=== PATIENT | female | born 1965 | race Caucasian/White ===

== ENCOUNTER 2019-05-12 06:13 | Inpatient (IN) | payer BC ==
[2019-05-09 09:08] VITALS: BMI 27.6
[~2019-05-12 06:13] MED LIST: ceFAZolin SODIUM 1 GM VIAL IVPB ONE
[2019-05-12] MEDS ORDERED: DESFLURANE GAS 240 ML BOTTLE IH ONE (07:23)
[2019-05-12] MEDS ORDERED: LIDOCAINE HCL 2% JELLY 10 ML CARTRIDGE ONE (07:23)
[2019-05-12] MEDS ORDERED: ROPIVACAINE HCL 0.5% 30ML VIAL ONE (07:28)
[2019-05-12] MEDS ORDERED: DEXAMETHASONE SOD PHOSPHATE/PF 10 MG/ML SDV ONE (07:28)
[2019-05-12] MEDS ORDERED: MIDAZOLAM HCL 2 MG/2 ML SINGLE DOSE VIAL ONE ×3 (07:30→07:36)
[2019-05-12] MEDS ORDERED: fentaNYL CITRATE 250 MCG/5 ML VIAL ONE (07:36)
[2019-05-12] MEDS ORDERED: PROPOFOL 20 ML ONE ×2 (07:36)
[2019-05-12] MEDS ORDERED: ROCURONIUM BROMIDE 50 MG/5 ML SYRINGE ONE ×3 (07:36→10:02)
[2019-05-12] MEDS ORDERED: SUCCINYLCHOLINE CHLORIDE 200 MG/10 ML SYRINGE ONE (07:36)
[2019-05-12] MEDS ORDERED: ceFAZolin SODIUM 1 GM VIAL ONE (07:39)
[2019-05-12] MEDS ORDERED: SODIUM CHLORIDE 0.9% P/F 10 ML VIAL IJ ONE (07:39)
--- NOTE | 2019-05-12 08:29 | HP ---
History & Physical Update - History History: No Change - Physical Physical: No Change - Assessment Assessment: No Change - Plan Plan: No Change
[2019-05-12] MEDS ORDERED: ceFAZolin SODIUM 1 GM VIAL IVPB ONE (09:00)
[2019-05-12] MEDS ORDERED: NEOSTIGMINE METHYLSULFATE 0.5 MG/ML - 10 ML MDV ONE (09:50)
[2019-05-12] MEDS ORDERED: DEXAMETHASONE SOD PHOSPHATE 4 MG/1 ML VIAL ONE (09:50)
[2019-05-12] MEDS ORDERED: GLYCOPYRROLATE 0.2 MG/1 ML VIAL ONE (09:50)
[2019-05-12] MEDS ORDERED: HYDROmorphone HCl 2 MG/ML VIAL ONE (10:48)
[2019-05-12] MEDS ORDERED: BENZOIN TINCTURE SWABSTICK TP ONE (12:33)
--- NOTE | 2019-05-12 13:07 | OP ---
Operative Note - Note: Operative Date: 05/12/19 Pre-Operative Diagnosis: Pelvic pain, fibroid uterus Operation: Supracervical hysterectomy, bilateral salpingo-oophorectomy, via pfannensteil incision; conversion from laparoscopy; cystoscopy Findings: globular fibroid uterus, normal fallopian tubes and ovaries bilaterally; bilateral ureteral jets on cystoscopy Post-Operative Diagnosis: Same as Pre-op Surgeon: Rossy Miller Patcher Wood Welder: Wiliam Nielson Anesthesiologist/DETONATOR MAKER: Christiano Fuentes Anesthesia: General Specimens Removed: uterus, fallopian tubes, ovaries Estimated Blood Loss (mls): 1,000 Drains, Volume Out (mls): 100 (clear urine) Fluid Volume Replaced (mls): 2,000 Operative Report Dictated: Yes
[2019-05-12] MEDS ORDERED: ACETAMINOPHEN INJECTION 100 ML IVPB ONE (13:18)
[2019-05-12] MEDS: ACETAMINOPHEN 1000 MG/100 ML VIAL (NON FORMULARY) IVPB PRN ×2 (13:29→18:09)
[2019-05-12] MEDS ORDERED: HYDROmorphone *PCA* 10MG/50ML DISP.SYRIN ONE (13:44)
[2019-05-12] MEDS ORDERED: HYDROmorphone *PCA* 10MG/50ML DISP.SYRIN PCA SCH (14:00)
[2019-05-12] MEDS ORDERED: LACTATED RINGERS SOLUTION 1,000 ML IV SCH (14:00)
[2019-05-12] MEDS: ENOXAPARIN NA (PORCINE) 40 MG/0.4 ML DISP.SYRIN SQ SCH (14:05)
--- NOTE | 2019-05-12 14:57 | OP ---
DATE OF OPERATION: 05/12/2019 ATTENDING PHYSICIAN: Rossy Miller MD PREOPERATIVE DIAGNOSIS: Pelvic pain and fibroid uterus. POSTOPERATIVE DIAGNOSIS: Pelvic pain and fibroid uterus. SURGERY: Supracervical hysterectomy and bilateral salpingo-oophorectomy via Pfannenstiel incision converted from laparoscopy. SURGEON: Rossy Miller MD MEDICAL DETAILIST: Wiliam Nielson MD ANESTHESIA: Diallo Loja CRNA INDICATION: The patient is a 54 with a history of pelvic pain and fibroid uterus, desiring definitive surgical management. She was counseled regarding risks, benefits, alternatives, and complications of procedure, including infection, bleeding, damage to surrounding organs, conversion to a laparotomy. She expressed understanding. DESCRIPTION: She was brought to the operating room. When anesthesia was found to be adequate, the patient was prepped and draped in normal sterile fashion, placed in dorsal lithotomy position using Shawn stirrups. A weighted speculum was placed in the patient's vagina, anterior vagina was retracted using a Ibrahim retractor, and the Advincula director counseling bureau was placed in the uterine cavity. A Mcrae was placed to gravity. Attention was brought to the abdomen. A 5-mm incision was made in the umbilicus and intraperitoneal placement was confirmed using a Veress needle and a water drop test. The patient's abdomen was insufflated to an operating pressure of 16 mmHg, and a size 5-mm trocar was placed under direct visualization. Evaluation of the abdominal cavity revealed a mobile fibroid uterus, bulky uterus, normal appearing ovaries and tubes bilaterally. Then 5-mm trocars were placed on the right lower quadrant, left lower quadrant, and left upper quadrant under direct visualization. Attention was brought to the left uteroovarian ligament, which was ligated using a LigaSure. This was carried down to the level of the internal cervix; however, a large fibroid was noted in the left broad ligament. Attention was brought to the right adnexa, where the uteroovarian ligament was transected using a LigaSure and the rounds were transected using the LigaSure and the anterior leaf of the broad ligament was dissected down to the level of the internal os, and the uterine vessels were isolated and ligated using the LigaSure. At this point in time, it was noted to be very difficult to dissect both vessels bilaterally, so decision was made to convert to laparotomy. Pneumoperitoneum was released. Laparoscopic trocars were removed, and an 11-cm skin incision was made approximately 2 cm above the suprapubic bone, and this was carried down to underlying fascia using the Bovie electrocautery. The fascia was nicked in midline, extended laterally using Tee scissors. Inferior portion of the fascial incision was tented up using Chrystal clamps and dissected off underlying rectus muscle using Tee scissors. Attention was brought to the superior portion, where in a similar fashion it was tented up using Chrystal clamps and dissected off the underlying rectus muscle using Tee scissors. The diastasis was noted. Peritoneum was entered sharply and extended inferiorly and superiorly. The uterus was then exteriorized and the right uterine vessels were skeletonized and they were double Margarita clamped and suture ligated using 0 Vicryl. Good hemostasis was noted. Attention was brought to the right uterine vessels. They were skeletonized and they were identified and doubly Margarita clamped and suture ligated using 0 Vicryl. Good hemostasis was noted. The cervix was then amputated and sent to Pathology. The posterior serosa was included to the cervical stump and this was all closed in interrupted fashion using 0 Vicryls. Copious irrigation was performed. Good hemostasis was noted. Cystoscopy was then performed. Bilateral ureteral jets were noted. The left ovary was then suture ligated using 0 Vicryl and left fallopian tube was sent to Pathology. The right fallopian tube was suture ligated and right fallopian tube was sent to Pathology. Copious irrigation was performed. All pedicles were examined and found to be hemostatic. The rectus muscles were reapproximated using 2-0 chromic in an interrupted fashion. The fascia was closed using 0 Vicryl in running fashion. The subcutaneous fat was closed using 0 Vicryl, 2-0 chromic gut in interrupted fashion. The skin was reapproximated using 3-0 Vicryl. The patient tolerated the procedure well. Estimated blood loss was 1000 mL. Urine at the end of the case was 100 mL and fluids given were 2000 mL. The patient was woken up in the recovery room in stable condition. Perez [id number]
[2019-05-12] MEDS: CEFAZOLIN 2 GM/D5W 2 GM/50 ML ML IVPB SCH (19:18)
--- NOTE | 2019-05-12 19:37 | PN ---
Progress Note (SOAP) - Subjective History of Present Illness: Patient reports pain and discomfort s/p Ofirmev No nausea No vomiting + young No chest pain, shortness of breath - Current Medications Current Medications: Active Medications Acetaminophen (Ofirmev Injection -) 1,000 mg IVPB Q6H PRN PRN Reason: PAIN LEVEL 1-5 Last Admin: 05/12/19 18:09 Dose: 1,000 mg Enoxaparin Sodium (Lovenox -) 40 mg SQ DAILY [facility] Last Admin: 05/12/19 14:05 Dose: Not Given Fentanyl (Sublimaze Injection -) 50 mcg IVPUSH [id number] PRN PRN Reason: PAIN-PACU ORDER X 4 DOSES ONLY Hydromorphone HCl (Hydromorphone 10 Mg/50 Ml-Ns) 10 mg CUSTOMS ENTRY WRITER CUSTOMS ENTRY WRITER [facility]; Protocol Stop: 05/19/19 13:56 Last Admin: 05/12/19 13:55 Dose: 10 mg Cefazolin Sodium/Dextrose (Ancef 2 Gm Premixed Ivpb -) 2 gm in 50 mls @ 100 mls /hr IVPB Q8HIV [facility] Stop: 05/13/19 02:29 Last Admin: 05/12/19 19:18 Dose: 100 mls/hr Lactated Ringer's (Lactated Ringers Solution) 1,000 mls @ 125 mls/hr IV ASDIR [facility] Last Admin: 05/12/19 14:17 Dose: 125 mls/hr Ondansetron HCl (Zofran Injection) 4 mg IVPUSH Q6H PRN PRN Reason: NAUSEA AND/OR VOMITING - Objective Vital Signs: Vital Signs Temperature 98.6 F 05/12/19 18:33 Pulse Rate 73 05/12/19 18:33 Respiratory Rate 18 05/12/19 18:33 Blood Pressure 114/68 05/12/19 18:33 O2 Sat by Pulse Oximetry (%) 100 05/12/19 17:55 Constitutional: Yes: Well Nourished, No Distress, Calm Cardiovascular: Yes: Regular Rate and Rhythm Respiratory: Yes: Regular, CTA Bilaterally Gastrointestinal: Yes: Soft, Hypoactive Bowel Sounds (present LUQ, RUQ) Extremities: Yes: WNL Edema: No Neurological: Yes: Alert, Oriented Psychiatric: Yes: Alert, Oriented Assessment/Plan 54 yo POD # 0 s/p ANITRA, BSO, cystoscopy, conversion from laparoscopy 1. Reviewed surgical procedure with patient All questions answered from patient and family members 2. Pain - on dilaudid CUSTOMS ENTRY WRITER, Ofirmev Will add caldolor PRN 3. - Adequate UOP (~ 100 cc/hr), + jets on cysto Will f/u BUN/Cr in the AM 4. Will keep NPO until flatus, will advance when passing flatus if tolerated 5. WIll continue to monitor
[2019-05-12] MEDS: ONDANSETRON 4 MG/2 ML VIAL IVPUSH PRN (19:41)
[2019-05-12] MEDS: IBUPROFEN 800 MG/8 ML IJ IVPB PRN (21:16)
[2019-05-13] MEDS: CEFAZOLIN 2 GM/D5W 2 GM/50 ML ML IVPB SCH (01:48)
[2019-05-13] MEDS: ONDANSETRON 4 MG/2 ML VIAL IVPUSH PRN (02:28)
[2019-05-13] MEDS: IBUPROFEN 800 MG/8 ML IJ IVPB PRN (02:52)
[2019-05-13 07:32] LABS: HEMATOCRIT 33.3 % (32.4-45.2); HEMOGLOBIN 11.3 GM/dL (10.7-15.3); MCH 31.6 pg (25.7-33.7); MCHC 34.1 g/dl (32.0-36.0); MEAN CELL VOLUME 92.6 fl (80-96); MEAN PLT VOLUME 9.5 fl (7.5-11.1); PLATELET COUNT 213 K/MM3 (134-434); RBC 3.59 M/mm3 (3.60-5.2); RDW 13.1 % (11.6-15.6); WHITE BLOOD COUNT 11.4 K/mm3 (4.0-10.0)
[2019-05-13 08:11] LABS: BLOOD UREA NITROGEN 11.6 mg/dL (7-18); CALCIUM 7.9 mg/dL (8.5-10.1); CREATININE 0.5 mg/dL (0.55-1.3); POTASSIUM 3.7 mmol/L (3.5-5.1)
--- NOTE | 2019-05-13 08:19 | PN ---
HC Provider Note Provider Note: Anesthesia Post-Op Note Pt seen s/p GA with TAP Blocks and TANK HOUSE SUPERVISOR for GAEL Pt in bed awake alert reporting some discomfort but reluctant to use TANK HOUSE SUPERVISOR -- reports tylenol helps Pt remains NPO with n/v; young in situ Pt denies puritis, SOB VSS As pt remains npo - suggest continue TANK HOUSE SUPERVISOR (pt encouraged to use more often) follow-up on TANK HOUSE SUPERVISOR Arianna Griffiths.
--- NOTE | 2019-05-13 08:35 | PN ---
Progress Note (SOAP) - Subjective History of Present Illness: Patient reports pain well controlled with Ofirimev / Caldolor / Dilaudid FIELD SERVICE TECHNICIAN Mild nausea this AM after trying ice cubes No flatus yet + young clear fluid Mild headache No fevers, chills, chest pain, shortness of breath. - Current Medications Current Medications: Active Medications Acetaminophen (Ofirmev Injection -) 1,000 mg IVPB Q6H PRN PRN Reason: PAIN LEVEL 1-5 Last Admin: 05/12/19 18:09 Dose: 1,000 mg Enoxaparin Sodium (Lovenox -) 40 mg SQ DAILY [facility] Last Admin: 05/12/19 14:05 Dose: Not Given Fentanyl (Sublimaze Injection -) 50 mcg IVPUSH [id number] PRN PRN Reason: PAIN-PACU ORDER X 4 DOSES ONLY Hydromorphone HCl (Hydromorphone 10 Mg/50 Ml-Ns) 10 mg FIELD SERVICE TECHNICIAN FIELD SERVICE TECHNICIAN [facility]; Protocol Stop: 05/19/19 13:56 Last Admin: 05/12/19 13:55 Dose: 10 mg Lactated Ringer's (Lactated Ringers Solution) 1,000 mls @ 125 mls/hr IV ASDIR [facility] Last Admin: 05/12/19 14:17 Dose: 125 mls/hr Ibuprofen (Caldolor Injection -) 600 mg IVPB Q6H PRN PRN Reason: FEVER Last Admin: 05/13/19 02:52 Dose: 600 mg - Objective Vital Signs: Vital Signs Temperature 98.0 F 05/13/19 06:00 Pulse Rate 79 05/13/19 06:00 Respiratory Rate 18 05/13/19 06:00 Blood Pressure 112/64 05/13/19 06:00 O2 Sat by Pulse Oximetry (%) 100 05/12/19 17:55 Constitutional: Yes: Well Nourished, No Distress, Calm Cardiovascular: Yes: Regular Rate and Rhythm Respiratory: Yes: Regular, CTA Bilaterally Gastrointestinal: Yes: Normal Bowel Sounds, Soft Extremities: Yes: WNL Peripheral Pulses WNL: Yes Edema: No Wound/Incision: Yes: Dressing Dry and Intact Psychiatric: Yes: Alert, Oriented Labs Lab Results: CBC, BMP 05/13/19 06:46 05/13/19 06:46 Assessment/Plan 54 yo POD # 1 s/p ANITRA, BSO, cystoscopy, conversion from laparoscopy for pelvic pain, fibroid uterus 1. Continue routine postoperative care. Will order abdominal binder for discomfort, throat lozenges for discomfort. 2. ID - afebrile, will continue to monitor vital signs. 3. Cardiovascular - No acute issues 4. Pulmonary - Encourage incentive spirometer, no signs of atelectasis at this time 5. Hematology - Hemoglobin / Hematocrit - 11.3/33.3 ( preop 14.1 / 42.2) Patient asymptomatic at this time, doing well Will continue to monitor vital signs of anemia Plan to start lovenox for thromboprophylaxis today 6. Urinary urine output adequate overnight (~2300 cc overnight); Creatinine stable (0.7 --> 0.5) Will DC young later today and await to void 7. Gastroinestinal - no signs of ileus at this time Will advance diet at lunch 8. Gynecology will follow up pathology 9. Anticipate discharge home POD # 2, pending able to ambulate, adequate pain control and urinating without issue.
[2019-05-13] MEDS ORDERED: BENZOCAINE/MENTH/CETYLPYRD CL 1 EACH LOZENGE MM PRN (08:39)
[2019-05-13] MEDS: ENOXAPARIN NA (PORCINE) 40 MG/0.4 ML DISP.SYRIN SQ SCH (09:27)
[2019-05-13] MEDS: IBUPROFEN 600 MG TABLET (FP) PO PRN (11:17)
[2019-05-13] MEDS: ACETAMINOPHEN 325 MG TABLET (FP) PO PRN ×2 (11:18→18:02)
[2019-05-13] MEDS ORDERED: PCA PUMP KEY 1 EACH EACH ONE (12:33)
[2019-05-13] MEDS: oxyCODONE HCL 5 MG TABLET PO PRN ×2 (12:37→18:00)
[2019-05-14] MEDS: oxyCODONE HCL 5 MG TABLET PO PRN ×3 (02:32→13:42)
[2019-05-14] MEDS: IBUPROFEN 600 MG TABLET (FP) PO PRN ×3 (02:33→13:42)
[2019-05-14] MEDS: ENOXAPARIN NA (PORCINE) 40 MG/0.4 ML DISP.SYRIN SQ SCH (10:26)
--- NOTE | 2019-05-14 11:25 | PN ---
Progress Note (short form) - Note Progress Note: Pain Follow up POD#3 Dilaudid AMMUNITION STOREKEEPER was cancelled yesterday. Patient started orals,no N/V,pain is controlled. A/P Rest of the care is as per DERRICK WORKER WELL SERVICE physician. Mar Stinson MD.
[2019-05-14 12:43] VITALS: BP 101/55; PULSE 89; TEMP 98.2
--- NOTE | 2019-05-14 12:50 | PATH ---
Surgical Pathology Report Patient Name: AGUSTINA RICE [facility]. Rec. #: [id number] /Age/Gender: 1965 (Age: 54) / F Account: [id number] Location: [facility] OBS/RAG SHREDDER Taken: 05/12/2019 Received: 05/12/2019 Reported: 05/14/2019 Physicians: Rossy Miller Specimen(s) Received A: UTERUS B: LEFT OVARY AND FALLOPIAN TUBE C: RIGHT OVARY AND FALLOPIAN TUBE Clinical History Pelvic pain, fibroid uterus Final Diagnosis A. UTERUS, SUPRACERVICAL HYSTERECTOMY: 344 G UTERUS. LEIOMYOMA(TA), SUBSEROSAL AND INTRAMURAL. INACTIVE ENDOMETRIUM. PORTION OF CERVIX WITH FOCAL SQUAMOUS METAPLASIA. B. OVARY AND FALLOPIAN TUBE, LEFT, SALPINGO-OOPHORECTOMY: OVARY WITH HEMORRHAGIC CORPUS LUTEUM. FALLOPIAN TUBE WITH PARATUBAL CYST (INCLUDING FIMBRIATED END AND FULL LUMINAL PORTION). C. OVARY AND FALLOPIAN TUBE, RIGHT, SALPINGO-OOPHORECTOMY: OVARY WITH CYSTIC FOLLICLES. FALLOPIAN TUBE WITH PARATUBAL CYST (INCLUDING FIMBRIATED END AND FULL LUMINAL PORTION). Electronically Signed Shira Juarez M.D. Gross Description A. Received in formalin labeled "uterus," is a 344 g uterus with an attached portion of cervix. The specimen measures 11.2 cm from superior to inferior, 10.2 cm from left to right and 8 cm from anterior to posterior. The serosa is figueredo-vaughan with bulging subserosal nodules. The cervix measures 2.3 cm in length and averages 2.3 cm in diameter. There is no ectocervix is identified. The endocervix is unremarkable. The endometrial cavity measures 4 cm in length and 0.7 cm from cornu to cornu. The cavity is distorted by multiple bulging intramural nodules, measuring up to 5 cm in greatest dimension. The endometrium is figueredo-brown and averages 0.1 cm in thickness. The cut surface of the subserosal and intramural nodules is figueredo and rubbery with whorled architecture. No areas of hemorrhage or necrosis are identified. The remaining myometrium is figueredo vaughan and measures up to 4.0 cm in thickness. Hot Strip Mill Supervisor sections are submitted in 9 cassettes as follows: 1-anterior cervix; 2-posterior cervix; 3-6-oplxeysp endomyometrium; 0-2-fvgosbube endomyometrium; 7-subserosal nodules; 7-2-gdksrzqtwd nodules. B. Received in formalin labeled "left ovary and fallopian tube," is a 3.3 x 2.3 x 1.7 cm ovary. The outer surface is figueredo vaughan, convoluted and smooth. Sectioning reveals a 1.2 cm in greatest dimension hemorrhagic corpus luteum. The remaining ovarian parenchyma is figueredo-george and unremarkable. Also received within the same container is a 0.7 cm in length fimbriated fallopian tube. The outer surface is figueredo vaughan and smooth. Sectioning reveals an unremarkable lumen. Hot Strip Mill Supervisor sections are submitted in 3 cassettes as follows: 1-ovary; 2-fimbria; 3-cross sections of fallopian tube. C. Received in formalin labeled "right ovary and fallopian tube," is a 3.6 x 2.3 x 1.5 cm ovary. The outer surface is figueredo-yellow, convoluted and smooth. Sectioning reveals a 1.0 cm in greatest dimension cystic structure. The cyst contains clear serous fluid. The remaining ovarian parenchyma is unremarkable. Also received within the same container is a 1.7 cm in length fimbriated fallopian tube. The outer surface is figueredo vaughan and smooth. Sectioning reveals an unremarkable lumen. Hot Strip Mill Supervisor sections are submitted in 3 cassettes as follows: 1-ovary; 2-fimbria; 3-cross sections of fallopian tube. 05/13/2019 [facility]05/13/2019
--- NOTE | 2019-05-14 13:32 | PN ---
Progress Note (SOAP) - Subjective History of Present Illness: Patient reports pain well controlled with Motrin/Tylenol/Oxycodone No fevers, chills, chest pain, shortness of breath. Tolerating PO, No Nausea or vomiting Ambulating, voiding, passing flatus - Current Medications Current Medications: Active Medications Acetaminophen (Ofirmev Injection -) 1,000 mg IVPB Q6H PRN PRN Reason: PAIN LEVEL 1-5 Last Admin: 05/12/19 18:09 Dose: 1,000 mg Acetaminophen (Tylenol -) 650 mg PO Q6H PRN PRN Reason: FEVER Last Admin: 05/13/19 18:02 Dose: 650 mg Benzocaine/Menthol (Cepacol Lozenge -) 1 each MM PRN PRN PRN Reason: SORE THROAT Enoxaparin Sodium (Lovenox -) 40 mg SQ DAILY [facility] Last Admin: 05/14/19 10:26 Dose: 40 mg Fentanyl (Sublimaze Injection -) 50 mcg IVPUSH [id number] PRN PRN Reason: PAIN-PACU ORDER X 4 DOSES ONLY Ibuprofen (Caldolor Injection -) 600 mg IVPB Q6H PRN PRN Reason: FEVER Last Admin: 05/13/19 02:52 Dose: 600 mg Ibuprofen (Motrin -) 600 mg PO Q6H PRN PRN Reason: FEVER Last Admin: 05/14/19 08:28 Dose: 600 mg Oxycodone HCl (Roxicodone -) 10 mg PO Q4H PRN PRN Reason: PAIN Last Admin: 05/14/19 08:28 Dose: 10 mg Oxycodone HCl (Roxicodone -) 5 mg PO Q4H PRN PRN Reason: PAIN Last Admin: 05/14/19 02:32 Dose: 5 mg - Objective Vital Signs: Vital Signs Temperature 98.2 F 05/14/19 09:00 Pulse Rate 89 05/14/19 09:00 Respiratory Rate 18 05/14/19 09:00 Blood Pressure 101/55 L 05/14/19 09:00 O2 Sat by Pulse Oximetry (%) 100 05/12/19 17:55 Constitutional: Yes: Well Nourished, No Distress, Calm Cardiovascular: Yes: Regular Rate and Rhythm Respiratory: Yes: Regular, CTA Bilaterally Gastrointestinal: Yes: Normal Bowel Sounds, Soft, Tenderness (incisional) Extremities: Yes: WNL Peripheral Pulses WNL: Yes Edema: No Integumentary: Yes: Other (blisters from silk tape on hips bilaterally ) Wound/Incision: Yes: Clean/Dry, Well Approximated Psychiatric: Yes: Alert, Oriented Labs Lab Results: CBC, BMP 05/13/19 06:46 05/13/19 06:46 Assessment/Plan 54 yo POD # 2 s/p ANITRA, BSO, cystoscopy, conversion from laparoscopy for pelvic pain, fibroid uterus 1. Continue routine postoperative care. Dressing removed, blisters noted bilateral hips secondary to silk tape. Will order silvadine 2. ID - afebrile, will continue to monitor vital signs. 3. Cardiovascular - No acute issues 4. Pulmonary - Encourage incentive spirometer, no signs of atelectasis at this time 5. Hematology - No signs of anemia On lovenox for thromboprophylaxis 6. Urinary - adequate UOP, voiding 7. Gastroinestinal - no signs of ileus at this time, tolerating regular diet 8. Gynecology will follow up pathology 9. Good pain control with Motrin/Tylenol/Oxycodone 10. Stable for discharge home today
--- NOTE | 2019-05-14 13:41 | DS ---
Physical Exam-CUSTOMER EXPERIENCE INTERN Vital Signs: Vital Signs Temperature 98.2 F 05/14/19 09:00 Pulse Rate 89 05/14/19 09:00 Respiratory Rate 18 05/14/19 09:00 Blood Pressure 101/55 L 05/14/19 09:00 O2 Sat by Pulse Oximetry (%) 100 05/12/19 17:55 Labs: CBC, BMP 05/13/19 06:46 05/13/19 06:46 Discharge Summary Reason For Visit: PELVIC PAIN Current Active Problems Fibroid uterus (Acute) Pelvic pain (Acute) Procedures: Principal: Supracervical hysterectomy, bilateral salpingo oophorectomy, cystoscopy via pfannensteil incision Hospital Course: Patient admitted for TLH, BSO, cystocopy, converted to open procedure POD # 1 patient ambulated, voiding, passed flatus, tolerated PO and with adequate pain control H/H Stable Adequate UOP with no concerning change in Creatinine Patient stable for DC home POD # 2 Condition: Good - Instructions Diet, Activity, Other Instructions: Return to the office in 1 week as scheduled Physical activity Resume your normal everyday activity as tolerated no heavy lifting or exercise until seen by your surgeon. You may walk unlimited guillermo of and climb stairs. You may resume driving the car when you feel safe and comfortable behind the wheel. No sexual activity as instructed. Wound care If you have a bandage, leave it on, and keep dry for 48-72 hours. After that time discard the outer bandage. If they are tapes on the skin under the out of bandage leave them in place. They will peel off in the next 7 to 10 days. Do Not Peel them off. You may shower the day after surgery. If there are tapes present on the skin, you may shower over them. Diet There are no dietary restrictions. Eat healthy, high-fiber foods. Drink 6 to 8 glasses of liquid each day. This will assist in keeping your bowels are regular. Pain management You may take Tylenol or acetaminophen or Ibuprofen (for example, Motrin, Advil etc.) from my pain prescription medication is ordered should be taken as prescribed for moderate to severe pain. Call MD for any of the following: Severe pain not relieved by medication Fever of 101 or higher Excessive bleeding or drainage on dressing Inability to urinate [facility] Reference #: [id number] Referrals: Rossy Miller MD [Staff Physician] - Disposition: HOME - Home Medications Comprehensive Discharge Medication List: Ambulatory Orders Acetaminophen [Tylenol .Regular Strength -] 650 mg PO Q4H PRN 10/24/12 Albuterol Sulfate *Inhaler* 2 inh IH PRN PRN 10/24/12 Multivitamins [Multivit ([facility] Formulary)] 1 each PO DAILY 10/24/12 Ibuprofen [Motrin] 800 mg PO Q4H PRN #0 tablet 10/30/12 Acetaminophen [Tylenol -] 1,000 mg PO Q6H #60 tablet 05/14/19 Ibuprofen [Motrin -] 600 mg PO QID #60 tablet 05/14/19 Oxycodone HCl/Acetaminophen [Percocet 5-325 mg Tablet] 1 tab PO Q6H #10 tablet MDD 4 05/14/19 Silver Sulfadiazine 1% Top Cr [Silvadene -] 1 applic TP BID #50 grams 05/14/19
[2019-05-14] MEDS ORDERED: SILVER SULFADIAZINE 1% TOP CREAM 50 GM JAR TP SCH (13:45)
== END 2019-05-14 16:30 | disposition home or self-care (01) | DRG 743 ==
LOC: JASUSAT 06:13 → EDSTATUS 08:00 → JSAMEDAYSX 13:07 → J3W 15:00
PROVIDERS: ADMIT Obstetrics & Gynecology; ATTEND Obstetrics & Gynecology
PROC: 0UT20ZZ Resection of Bilateral Ovaries, Open Approach (ICD-10-PCS; 2019-05-12)
PROC: 0TJB8ZZ Inspection of Bladder, Via Natural or Artificial Opening Endoscopic (ICD-10-PCS; 2019-05-12)
PROC: 0UT90ZL Resection of Uterus, Supracervical, Open Approach (ICD-10-PCS; principal; 2019-05-12 08:00)
PROC: 0UT70ZZ Resection of Bilateral Fallopian Tubes, Open Approach (ICD-10-PCS; 2019-05-12 08:00)
DX: D25.9 Leiomyoma of uterus, unspecified (principal); Z53.31 Laparoscopic surgical procedure converted to open procedure
CPT/HCPCS: 36415; 74018-TC-FY; 80048; 84703; 85027; 86850; 86900; 86901; 88305-TC; 94760; J0131

== ENCOUNTER → 2020-01-02 | Day surgery (SDC) | payer BC ==
--- NOTE | 2020-01-02 17:45 | OP ---
DATE OF OPERATION: 01/02/2020 PREOPERATIVE DIAGNOSIS: Right breast mass, retroareolar. PROCEDURE: Right breast ultrasound-guided core biopsy with clip placement. ANESTHESIA: Local. ATTENDING SURGEON: January Cam MD ESTIMATED BLOOD LOSS: Minimal. COMPLICATIONS: None. DESCRIPTION OF PROCEDURE: Patient was made aware of the risks and benefits of the procedure and consented. She was placed in a supine position, and under sterile conditions with 2% lidocaine for local anesthesia, a small sondra was made in the skin. Using a 13-gauge suction biopsy device via lateral approach under ultrasound guidance, multiple cores were obtained and submitted to Pathology. Likewise, under ultrasound guidance, a bowtie clip was placed into the biopsy region. Steri-Strip and a sterile bandage was applied. We will contact her with results. JANUARY CAM M.D. [id number]
--- NOTE | 2020-01-05 14:46 | PATH ---
Surgical Pathology Report Patient Name: AGUSTINA RICE Med. Rec. #: [id number] /Age/Gender: 1965 (Age: 54) / F Account: [id number] Location: [facility] Taken: 01/02/2020 Received: 01/02/2020 Reported: 01/05/2020 Physicians: Perez Gambino M.D. Specimen(s) Received BREAST CORE BIOPSY RIGHT RA Clinical History Nonpalpable lesion Ultrasound findings: Suspicious Final Diagnosis BREAST, RIGHT, RETROAREOLAR, CORE BIOPSY: BENIGN BREAST TISSUE SHOWING FIBROADENOMATOID CHANGE, STROMAL FIBROSIS AND FOCAL CYST RUPTURE WITH REACTION. Electronically Signed Stormy Jain M.D. Gross Description Received in formalin labeled "right breast retro," is a 1.8 x 1.4 x 0.3 cm aggregate of multiple figueredo-yellow, irregular to cylindrical portions of fibroadipose tissue admixed with blood clot. The formalin is filtered and the specimen is entirely submitted in one cassette. Time to formalin fixation: < 1 minute Total formalin fixation time: Approximately 6 hours. /01/02/2020 [place]01/02/2020
== END | disposition home or self-care (01) ==
LOC: FRADUS-SUR 13:15
PROVIDERS: ATTEND Surgery Surgical Oncology
PROC: 0HBT3ZX Excision of Right Breast, Percutaneous Approach, Diagnostic (ICD-10-PCS; principal; 2020-01-02)
DX: N60.31 Fibrosclerosis of right breast (principal); N64.89 Other specified disorders of breast; N63.10 Unspecified lump in the right breast, unspecified quadrant
CPT/HCPCS: 19083; 87899; 88305-TC; A4648

== ENCOUNTER 2021-11-29 10:55 | Observation (INO) | payer BC ==
[2021-11-29 11:04] VITALS: BMI 29.2
[2021-11-29 12:59] LABS: BASO % 0.3 % (0-2.0); EOS % 1.1 % (0-4.5); HEMATOCRIT 39.5 % (32.4-45.2); LYMPH % 20.5 % (8-40); MCH 29.6 pg (25.7-33.7); MEAN CELL VOLUME 89.8 fl (80-96); MONO % 6.9 % (3.8-10.2); NEUT % 71.2 % (42.8-82.8); PLATELET COUNT 226 10^3/uL (134-434); RDW 13.5 % (11.6-15.6); WHITE BLOOD COUNT 9.6 K/mm3 (4.0-10.0)
[2021-11-29 13:22] LABS: CHLORIDE 108 mmol/L (98-107); SODIUM 140 mmol/L (136-145)
[2021-11-29 13:24] LABS: ANION GAP 7 MMOL/L (8-16); BLOOD UREA NITROGEN 15.9 mg/dL (7-18); CALCIUM 9.7 mg/dL (8.5-10.1); CO2 25 mmol/L (21-32)
[2021-11-29 13:25] LABS: ALBUMIN 3.4 g/dl (3.4-5.0); GLUCOSE,RANDOM 122 mg/dL (74-106)
[2021-11-29 13:28] LABS: CREATININE 0.7 mg/dL (0.55-1.3); SGOT/AST 30 U/L (15-37); SGPT/ALT 34 U/L (13-61)
[2021-11-29 13:29] LABS: BILIRUBIN,TOTAL 0.4 mg/dL (0.2-1); TOT PROT 7.2 g/dl (6.4-8.2)
[2021-11-29 13:30] LABS: ALK PHOS 128 U/L (45-117)
[2021-11-29 13:42] LABS: INR 1.05 (0.83-1.09); PROTHROMBIN TIME (PATIENT) 12.1 SEC (9.7-13.0)
[2021-11-29] MEDS ORDERED: CYCLOBENZAPRINE HCL 10 MG TABLET (FP) PO ONE (18:20)
[2021-11-29] MEDS ORDERED: IBUPROFEN 800 MG/8 ML IJ IVPB PRN (18:20)
[2021-11-29] MEDS ORDERED: CYCLOBENZAPRINE HCL 10 MG TABLET (FP) ONE (18:39)
[2021-11-29] MEDS ORDERED: ASPIRIN 81 MG CHEWABLE TABLETS ONE (18:39)
[2021-11-29] MEDS: ASPIRIN 81 MG CHEWABLE TABLETS PO SCH (18:52)
[2021-11-29] MEDS ORDERED: IBUPROFEN 600 MG TABLET (FP) PO ONE ×2 (20:35→20:36)
[2021-11-30 08:16] LABS: BASO % 0.1 % (0-2.0); EOS % 4.2 % (0-4.5); HEMOGLOBIN 13.2 GM/dL (10.7-15.3); LYMPH % 27.7 % (8-40); MCH 29.8 pg (25.7-33.7); MEAN CELL VOLUME 90.1 fl (80-96); MEAN PLT VOLUME 9.3 fl (7.5-11.1); MONO % 10.3 % (3.8-10.2); NEUT % 57.7 % (42.8-82.8); PLATELET COUNT 243 10^3/uL (134-434); RBC 4.44 M/mm3 (3.60-5.2); RDW 13.7 % (11.6-15.6); WHITE BLOOD COUNT 6.8 K/mm3 (4.0-10.0)
[2021-11-30 08:31] LABS: ALBUMIN 3.1 g/dl (3.4-5.0); BLOOD UREA NITROGEN 22.1 mg/dL (7-18); CALCIUM 8.6 mg/dL (8.5-10.1); MAGNESIUM 1.8 mg/dL (1.8-2.4)
[2021-11-30 08:34] LABS: CHOLESTEROL 213 mg/dL (50-200); CREATININE 0.7 mg/dL (0.55-1.3); PHOSPHOROUS 3.6 mg/dL (2.5-4.9); TRIGLYCERIDES 133 mg/dL (0-150)
[2021-11-30 08:35] LABS: LDL CHOLESTEROL (ONLY SJRH) 120 mg/dL (5-100)
[2021-11-30 08:36] LABS: BILIRUBIN,TOTAL 0.6 mg/dL (0.2-1); HDL CHOLESTEROL 76 mg/dL (40-60); TOT PROT 6.4 g/dl (6.4-8.2)
[2021-11-30] MEDS: ENOXAPARIN NA (PORCINE) 40 MG/0.4 ML DISP.SYRIN SQ SCH (10:50)
[2021-11-30] MEDS: ASPIRIN 81 MG CHEWABLE TABLETS PO SCH (10:51)
[2021-11-30] MEDS: LISINOPRIL 5 MG TABLET PO SCH (10:51)
[2021-11-30] MEDS ORDERED: ATORVASTATIN CA 40 MG TABLET (FP) PO SCH (11:30)
[2021-11-30] MEDS: INSULIN SLIDING SCALE (NOVOLOG) 1 VIAL SQ SCH ×2 (16:58→21:04)
[2021-11-30] MEDS ORDERED: guaiFENesin 200 MG/10 ML 10 ML UNIT-DOSE CUPS PO ONE (19:44)
[2021-11-30] MEDS ORDERED: ACETAMINOPHEN 325 MG TABLET (FP) PO ONE (19:44)
[2021-11-30] MEDS ORDERED: LIDOCAINE 5% TOPICAL PATCH TP ONE (19:44)
[2021-11-30] MEDS ORDERED: MELATONIN 5 MG TABLETS PO ONE (19:45)
[2021-12-01] MEDS ORDERED: KETOROLAC TROMETHAMINE 30 MG/1 ML VIAL IM ONE (02:58)
[2021-12-01] MEDS: INSULIN SLIDING SCALE (NOVOLOG) 1 VIAL SQ SCH ×3 (06:18→17:26)
[2021-12-01] MEDS ORDERED: LIDOCAINE PATCH REMOVAL MC ONE (08:00)
[2021-12-01] MEDS: ENOXAPARIN NA (PORCINE) 40 MG/0.4 ML DISP.SYRIN SQ SCH (10:18)
[2021-12-01] MEDS: LISINOPRIL 5 MG TABLET PO SCH (10:18)
[2021-12-01] MEDS: ASPIRIN 81 MG CHEWABLE TABLETS PO SCH (10:18)
[2021-12-01 12:01] VITALS: BP 111/78; PULSE 70; TEMP 97.7
== END 2021-12-01 17:29 | disposition home or self-care (01) ==
LOC: JER 10:55 → INTOOBSV 15:41 → UNDOADMOB 15:41 → JERBED 15:41 → J4S 21:48 → JERBED 21:48
PROVIDERS: ADMIT Internal Medicine
PROC: 3E023GC Introduction of Other Therapeutic Substance into Muscle, Percutaneous Approach (ICD-10-PCS; principal; 2021-11-29)
PROC: 3E033GC Introduction of Other Therapeutic Substance into Peripheral Vein, Percutaneous Approach (ICD-10-PCS; 2021-11-29)
PROC: 3E0233Z Introduction of Anti-inflammatory into Muscle, Percutaneous Approach (ICD-10-PCS; 2021-11-29)
DX: R07.9 Chest pain, unspecified (principal); M79.10 Myalgia, unspecified site; R05.9 Cough, unspecified; J45.909 Unspecified asthma, uncomplicated; E03.9 Hypothyroidism, unspecified; E11.9 Type 2 diabetes mellitus without complications; F41.9 Anxiety disorder, unspecified; M54.9 Dorsalgia, unspecified; R06.00 Dyspnea, unspecified; D25.9 Leiomyoma of uterus, unspecified; R01.1 Cardiac murmur, unspecified; R10.2 Pelvic and perineal pain; Z88.0 Allergy status to penicillin; R60.0 Localized edema; Z29.9 Encounter for prophylactic measures, unspecified; Z91.013 Allergy to seafood
CPT/HCPCS: 36415; 71046-TC-FY; 71275-TC; 80053; 80061; 82550; 82962; 83036; 83735; 84100; 84443; 84484; 85025; 85379; 85610; 85730; 87804; 93005; 93010; 93306-TC; 93351; 96372; 96374; 99285-25; C9803; G0378; Q9967; U0003; U0005

== ENCOUNTER 2022-08-31 11:00 | Emergency (ER) | payer OTHER, BC ==
[2022-08-31 11:05] VITALS: BP 119/83; PULSE 75; RESP 20; TEMP 98.3; BMI 28.9
[2022-08-31] MEDS ORDERED: KETOROLAC TROMETHAMINE 30 MG/1 ML VIAL IM ONE (12:23)
[2022-08-31] MEDS ORDERED: KETOROLAC TROMETHAMINE 30 MG/1 ML VIAL ONE (12:24)
[2022-08-31] MEDS ORDERED: METHOCARBAMOL 500 MG TABLET PO ONE (13:05)
== END 2022-08-31 13:09 | disposition home or self-care (01) ==
LOC: JERFT 11:00
PROC: 3E023GC Introduction of Other Therapeutic Substance into Muscle, Percutaneous Approach (ICD-10-PCS; principal; 2022-08-31)
DX: S46.812A Strain of other muscles, fascia and tendons at shoulder and upper arm level, left arm, initial encounter (principal); M25.552 Pain in left hip; X50.9XXA Other and unspecified overexertion or strenuous movements or postures, initial encounter
CPT/HCPCS: 73030-TC-LT-FY; 73060-TC-LT-FY; 73070-TC-LT-FY; 73110-TC-LT-FY; 73130-TC-LT-FY; 99284-25

== ENCOUNTER 2023-09-24 15:36 | Emergency (ER) | payer BC ==
[2023-09-24 15:50] VITALS: TEMP 98.2; BMI 28.6
[2023-09-24] MEDS ORDERED: ALBUTEROL SO4 2.5/IPRATROPIUM 0.5 INH SOL 3 ML VIAL.NEB. NEB ONE ×3 (16:15→20:19)
[2023-09-24] MEDS: ALBUTEROL SO4 2.5/IPRATROPIUM 0.5 INH SOL 3 ML VIAL.NEB. NEB SCH ×4 (16:18→17:13)
[2023-09-24] MEDS ORDERED: ACETAMINOPHEN WITH CODEINE 300MG/30MG TABLET PO ONE (17:04)
[2023-09-24 17:06] VITALS: RESP 18
[2023-09-24] MEDS ORDERED: ACETAMINOPHEN W/ CODEINE LIQ 5 ML CUP PO ONE (17:07)
[2023-09-24] MEDS ORDERED: ACETAMINOPHEN W/ CODEINE LIQ 5 ML CUP ONE (17:08)
[2023-09-24 20:38] LABS: BASO % 0.2 % (0-2.0); EOS % 1.3 % (0-4.5); HEMATOCRIT 40.7 % (32.4-45.2); HEMOGLOBIN 13.9 GM/dL (10.7-15.3); MCH 31.2 pg (25.7-33.7); MCHC 34.3 g/dl (32.0-36.0); MEAN CELL VOLUME 91.1 fl (80-96); MEAN PLT VOLUME 9.5 fl (7.5-11.1); MONO % 7.5 % (3.8-10.2); PLATELET COUNT 228 10^3/uL (134-434); RBC 4.47 M/mm3 (3.60-5.2); RDW 13.4 % (11.6-15.6); WHITE BLOOD COUNT 11.7 K/mm3 (4.0-10.0)
[2023-09-24 20:59] LABS: CHLORIDE 105 mmol/L (98-107); POTASSIUM 3.7 mmol/L (3.5-5.1); SODIUM 140 mmol/L (136-145)
[2023-09-24 21:02] LABS: ALBUMIN 3.3 g/dl (3.4-5.0); ANION GAP 8 mmol/L (4-13); BLOOD UREA NITROGEN 16.8 mg/dL (7-18); CALCIUM 8.5 mg/dL (8.5-10.1); CO2 28 mmol/L (21-32); GLUCOSE,RANDOM 169 mg/dL (74-106)
[2023-09-24 21:05] LABS: CREATININE 0.8 mg/dL (0.55-1.3); SGOT/AST 21 U/L (15-37); SGPT/ALT 46 U/L (13-61)
[2023-09-24 21:06] LABS: BILIRUBIN,TOTAL 0.3 mg/dL (0.2-1); TOT PROT 6.8 g/dl (6.4-8.2)
[2023-09-24 21:07] LABS: ALK PHOS 117 U/L (45-117)
[2023-09-24 21:09] LABS: N-TERMINAL BNP 9.8 pg/ml (5-125)
[2023-09-24] MEDS ORDERED: KETOROLAC TROMETHAMINE 15 MG/ML VIAL ONE (21:16)
[2023-09-24] MEDS ORDERED: KETOROLAC TROMETHAMINE 15 MG/ML VIAL IVPUSH ONE (21:16)
[2023-09-24 21:28] VITALS: BP 106/56; PULSE 20
== END 2023-09-24 22:22 | disposition home or self-care (01) ==
LOC: JER 15:36
PROC: 3E033NZ Introduction of Analgesics, Hypnotics, Sedatives into Peripheral Vein, Percutaneous Approach (ICD-10-PCS; principal; 2023-09-24)
PROC: 3E0F7GC Introduction of Other Therapeutic Substance into Respiratory Tract, Via Natural or Artificial Opening (ICD-10-PCS; 2023-09-24)
PROC: 3E0F7GC Introduction of Other Therapeutic Substance into Respiratory Tract, Via Natural or Artificial Opening (ICD-10-PCS; 2023-09-24)
DX: R05.2 Subacute cough (principal); Z20.822 Contact with and (suspected) exposure to COVID-19
CPT/HCPCS: 0241U-QW; 36415; 71046-TC-FY; 80053; 82550; 83880; 84484; 85025; 93005; 93010; 99285-25

== ENCOUNTER 2024-03-23 07:25 | Emergency (ER) | payer BC ==
[2024-03-23 07:34] VITALS: BP 112/72; PULSE 124; RESP 18; TEMP 99.2; BMI 29.2
[2024-03-23] MEDS ORDERED: LACTATED RINGERS SOLUTION 1000 ML INFUS.BAG IV ONE (08:00)
[2024-03-23] MEDS ORDERED: DEXAMETHASONE SOD PHOSPHATE 10 MG/1 ML VIAL ONE (08:07)
[2024-03-23] MEDS ORDERED: ONDANSETRON *ODT* 4 MG TABLET ONE (08:07)
[2024-03-23] MEDS ORDERED: ACETAMINOPHEN 500 MG TABLET (FP) ONE (08:07)
[2024-03-23] MEDS ORDERED: ALBUTEROL SO4 2.5/IPRATROPIUM 0.5 INH SOL 3 ML VIAL.NEB. NEB ONE (08:07)
[2024-03-23] MEDS: ALBUTEROL SO4 2.5/IPRATROPIUM 0.5 INH SOL 3 ML VIAL.NEB. NEB SCH (08:15)
[2024-03-23] MEDS: ONDANSETRON *ODT* 4 MG TABLET SL ONE ×2 (08:15→09:14)
[2024-03-23] MEDS: ACETAMINOPHEN 500 MG TABLET (FP) PO ONE (08:15)
[2024-03-23] MEDS: DEXAMETHASONE SOD PHOSPHATE 10 MG/1 ML VIAL PO ONE (08:15)
[2024-03-23] MEDS: ACETAMINOPHEN 1000 MG/100 ML BAG IVPB ONE (09:14)
== END 2024-03-23 11:07 | disposition home or self-care (01) ==
LOC: JER 07:25
PROC: 3E0F7GC Introduction of Other Therapeutic Substance into Respiratory Tract, Via Natural or Artificial Opening (ICD-10-PCS; principal; 2024-03-23)
DX: R53.1 Weakness (principal); R53.81 Other malaise; R51.9 Headache, unspecified; R52 Pain, unspecified; R11.0 Nausea; J02.9 Acute pharyngitis, unspecified; U07.1 COVID-19; R07.9 Chest pain, unspecified; R06.02 Shortness of breath
CPT/HCPCS: 0241U-QW; 71046-TC-FY; 82962; 87651; 93005; 93010; 99285-25; J1100; Q0162